=== PATIENT | male | born 1985 | race Caucasian/White ===

== ENCOUNTER 2018-09-18 22:04 | Inpatient (IN) ==
[2018-09-18] MEDS ORDERED: 0.9 % SODIUM CHLORIDE 1,000 ML IV ONE ×2 (22:14→23:06)
[2018-09-18] MEDS ORDERED: ONDANSETRON 4 MG/2 ML VIAL IV ONE (22:20)
[2018-09-18 22:36] LABS: Basophils # (Auto) 0 K/mcL (0.0-0.3); Basophils % (Auto) 0.4 % (0.0-2.0); Eosinophils # (Auto) 0.2 K/mcL (0.0-0.7); Granulocytes % (Auto) 66.1 % (38.0-78.0); Lymphocytes # (Auto) 2.3 K/mcL (1.5-4.8); Lymphocytes % (Auto) 23.6 % (15.5-49.0); Mean Cell Volume 74.3 fL (80.0-100.0); Mean Corpuscular HGB Conc 33.3 g/dL (31.0-36.0); Mean Corpuscular Hemoglobin 24.8 pg (26.0-34.0); Monocytes # (Auto) 0.8 K/mcL (0.1-0.9); Monocytes % (Auto) 7.9 % (1.0-12.0); Platelet Count 177 K/mcL (140-440); RBC 4.18 M/mcL (4.50-5.90); Red Cell Distribution Width 14.6 % (11.5-14.5)
[2018-09-18 23:05] LABS: ALT/SGPT 12 U/l (0-40); Albumin 3.4 gm/dL (3.2-5.2); Alkaline Phosphatase 66 U/L (39-117); Blood Urea Nitrogen 20 mg/dl (6-20)
[2018-09-19] MEDS ORDERED: 0.9 % SODIUM CHLORIDE 1,000 ML IV ONE (00:25)
[2018-09-19] MEDS ORDERED: INSULIN REGULAR, HUMAN 1 UNIT/0.01 ML UNIT IV ONE (01:38)
--- NOTE | 2018-09-19 01:56 | Emergency Department Note ---
General Adult HPI - General Chief complaint: Dizziness Stated complaint: Coughing up Blood and Dizziness Time Seen by Provider: 09/19/18 00:05 Source: patient, family Mode of arrival: wheelchair Limitations: no limitations - History of Present Illness HPI Narrative: Marquise is a very tall and very large 32-year-old male comes to the emergency room after having an episode of vomiting with some blood in it today. He is felt short of breath. This seems to have worsened today. He has been also particularly dizzy this afternoon particularly with standing up. He has been sick for a couple of weeks that has included some cough, cloudy heavy mucus mostly he thinks coughed up from postnasal drainage. He has not vomited except as above. He has not had fevers or chills or sweats. REVIEW OF SYSTEMS: By careful eating he has over 3-4 years lost weight from over 500 pounds down to 360. Denies chest pains. Has slight or mild wheezing. No nausea chronically but some this evening. No diarrhea or constipation. No hematochezia. He had some melanotic stool a few months ago. He denies acid reflux or heartburn. Denies dysuria Some low back pain that he attributes to adjustments because of knee pain probably. Has had a few headaches. He has had constant weakness but also muscle weakness related to his back and knee issues and he is getting into physical therapy regarding that. Today is felt imbalance. Some anxiousness but not chronically or history of. Some depression symptoms but not chronically or under treatment. He has a fair amount of stressors. - Related Data Allergies Allergy/AdvReac Type Severity Reaction Status Date / Time No Known Drug Allergies Allergy Verified 09/18/18 22:10 Past Medical History - Past Medical History Medical history: Reports: asthma, obesity (MORBID), other (DENIES: PUD.). Denies: DM, hypertension, hypothyroidism, renal disease Psychiatric history: Denies: anxiety, depression Family history: Reports: diabetes (mother) - Social History smoking status: Never smoker Alcohol use: Reports: Rarely (1-2/month) Drug use: Reports: none. Denies: marijuana Physical Exam Limitations: no limitations General appearance: alert, in no apparent distress Head: atraumatic, normocephalic Eye: Present: EOMI ENT: normal exam, mucous membranes dry (mildly.) Neck: Present: trachea midline. Absent: lymphadenopathy, thyromegaly Chest: Present: symmetric chest wall rise Respiratory: Present: normal lung sounds bilaterally. Absent: respiratory distress, wheezes, stridor, accessory muscle use, prolonged expiratory phase Cardiovascular: Present: regular rate, normal rhythm. Absent: systolic murmur, diastolic murmur Abdominal: Present: soft, other (markedly large; also large folds panniculi.). Absent: distention, tenderness, guarding, rebound, rigidity, organomegaly, mass Extremities: Absent: pedal edema, pretibial edema, calf tenderness Back: Absent: CVA tenderness (R), CVA tenderness (L), spinous process tenderness Neurological: Present: alert, oriented X3 Psychiatric: Present: flat affect, serious Skin: Present: warm, dry Course Course Narrative: 10:52 PM - significant dizziness. We will do orthostatic blood pressures and labs. IV fluids. Labs came back with a blood sugar of over 300. He has a moderate anemia with microcytosis. We will repeat this in an hour. Beta hydroxybutyrate was mildly elevated at 0.35. Will give a second liter of fluid. Approximately 1 AM - 2nd POC hematocrit remained stable at 27%. patient remained orthostatic with blood pressures dropping and pulse going up to 150. Additional liter of fluid, third, ordered. 1:45 AM - patient was able to ambulate from wheelchair to his bed and in the bathroom without major difficulties and stated he felt some better. Blood sugar went back up over 300 and so 5 units of regular given IV. 1:55 AM - On repeat testing of postural changes his pulse again went to nearly 150 and became dizzy with standing. Call out to hospitalist to consider admission because of his postural hypotension with severe tachycardia in the circumstance of new diagnosis of diabetes and an underlying microcytic anemia. 2:25 AM - patient had a large melanotic stool that was grossly heme positive as well as a small amount of emesis with mucus and some blood. He gave a history of being on naproxen [address] [facility] clinic for his knee pain and back pain and has been on this for weeks. Will do a Protonix push and drip and transfer patient to [facility] because of lack of ICU bed availability. Patient needs careful monitoring, probable low insulin drip for DKA, and probable packed RBCs. POC Chem-8 and hematocrit ordered as well. 2:35 AM - possibility of an ICU bed here became available. Need to speak with GI specialist regarding guidance and timing for upper scope. 2:45 AM - repeat hematocrit (POC) was 29%, an increase of 2%, in spite of patient's significant orthostasis! Still will be typing and crossing 2 units of blood. I also spoke with Ozzie Graf, who will plan on doing patient's upper scope around 5:30 AM. Patient to be transferred to ICU. Hospitalist, Dr. Barclay, aware and in agreement. CBC ordered to try to confirm the POC readings; PT/INR and PTT also ordered. Vital Signs Temperature 97.5 F 09/18/18 22:05 Pulse Rate 111 H 09/18/18 22:05 Respiratory Rate 15 09/18/18 22:05 Blood Pressure 133/71 09/18/18 22:05 Pulse Oximetry (%) 96 09/18/18 22:05 Temperature 97.5 F 09/18/18 22:05 Pulse Rate 107 H 09/19/18 02:08 Respiratory Rate 17 09/19/18 02:08 Blood Pressure 110/73 09/19/18 02:03 Pulse Oximetry (%) 98 09/19/18 02:08 Medical Decision Making - Lab Data Result diagrams: 09/18/18 22:15 09/18/18 22:15 Lab Results 09/18/18 09/18/18 09/18/18 Range/Units 22:15 22:15 22:15 WBC 9.6 (4.5-11.0) K/mcL RBC 4.18 L (4.50-5.90) M/mcL Hgb 10.4 L (13.5-16.5) g/dL Hct 31.1 L (41.0-55.0) % POC Hct (41.0-55.0) % MCV 74.3 L (80.0-100.0) fL MCH 24.8 L (26.0-34.0) pg MCHC 33.3 (31.0-36.0) g/dL RDW 14.6 H (11.5-14.5) % Plt Count 177 (140-440) K/mcL MPV 10.0 (7.4-10.4) fL Gran % 66.1 (38.0-78.0) % Lymph % (Auto) 23.6 (15.5-49.0) % Starke % (Auto) 7.9 (1.0-12.0) % Eos % (Auto) 2.0 (0.0-7.0) % Baso % (Auto) 0.4 (0.0-2.0) % Gran # 6.3 (1.8-8.0) K/mcL Lymph # (Auto) 2.3 (1.5-4.8) K/mcL Starke # (Auto) 0.8 (0.1-0.9) K/mcL Eos # (Auto) 0.2 (0.0-0.7) K/mcL Baso # (Auto) 0 (0.0-0.3) K/mcL POC Sodium (133-145) mmol/L Sodium 137 (133-145) mmol/L POC Potassium (3.3-5.1) mmol/L Potassium 3.9 (3.3-5.1) mmol/L POC Chloride (96-108) mmol/L Chloride 102 (96-108) mmol/L Carbon Dioxide 21 L (22-30) mmol/L POC Total CO2 (22-30) mmol/L Anion Gap 14.0 (8-16) POC BUN (6-20) mg/dl BUN 20 (6-20) mg/dl Creatinine 0.6 L (0.7-1.2) mg/dl POC Creatinine (0.7-1.2) mg/dl GFR Calculation 132 Glucose 339 H (70-105) mg/dL POC Glucose (70-105) mg/dL Calcium 8.6 (8.6-10.4) mg/dl POC WB Ioniz Calcium (1.16-1.32) mmol/L Total Bilirubin 0.3 (0.0-1.0) mg/dL AST 12 (0-37) U/l ALT 12 (0-40) U/l Alkaline Phosphatase 66 (39-117) U/L Total Protein 6.7 (5.9-8.4) gm/dL Albumin 3.4 (3.2-5.2) gm/dL Globulin 3.3 (2.2-3.7) gm/dL Albumin/Globulin Ratio 1.0 (1.0-2.3) Beta-Hydroxybutyrate 0.35 H (< 0.27) mmol/L 09/18/18 09/18/18 Range/Units 22:30 23:35 WBC (4.5-11.0) K/mcL RBC (4.50-5.90) M/mcL Hgb (13.5-16.5) g/dL Hct (41.0-55.0) % POC Hct 27.0 L 27.0 L (41.0-55.0) % MCV (80.0-100.0) fL MCH (26.0-34.0) pg MCHC (31.0-36.0) g/dL RDW (11.5-14.5) % Plt Count (140-440) K/mcL MPV (7.4-10.4) fL Gran % (38.0-78.0) % Lymph % (Auto) (15.5-49.0) % Starke % (Auto) (1.0-12.0) % Eos % (Auto) (0.0-7.0) % Baso % (Auto) (0.0-2.0) % Gran # (1.8-8.0) K/mcL Lymph # (Auto) (1.5-4.8) K/mcL Starke # (Auto) (0.1-0.9) K/mcL Eos # (Auto) (0.0-0.7) K/mcL Baso # (Auto) (0.0-0.3) K/mcL POC Sodium 140 139 (133-145) mmol/L Sodium (133-145) mmol/L POC Potassium 3.7 4.6 (3.3-5.1) mmol/L Potassium (3.3-5.1) mmol/L POC Chloride 104 104 (96-108) mmol/L Chloride (96-108) mmol/L Carbon Dioxide (22-30) mmol/L POC Total CO2 21 L 23 (22-30) mmol/L Anion Gap (8-16) POC BUN 19 25 H (6-20) mg/dl BUN (6-20) mg/dl Creatinine (0.7-1.2) mg/dl POC Creatinine 0.3 L 0.4 L (0.7-1.2) mg/dl GFR Calculation Glucose (70-105) mg/dL POC Glucose 330 H 297 H (70-105) mg/dL Calcium (8.6-10.4) mg/dl POC WB Ioniz Calcium 1.09 L 1.05 L (1.16-1.32) mmol/L Total Bilirubin (0.0-1.0) mg/dL AST (0-37) U/l ALT (0-40) U/l Alkaline Phosphatase (39-117) U/L Total Protein (5.9-8.4) gm/dL Albumin (3.2-5.2) gm/dL Globulin (2.2-3.7) gm/dL Albumin/Globulin Ratio (1.0-2.3) Beta-Hydroxybutyrate (< 0.27) mmol/L Disposition Pt seen by REEL SLITTER/PA only: No Clinical Impression: Orthostasis, Sinus tachycardia, Morbid obesity due to excess calories, Microcytic hypochromic anemia, Hematemesis with nausea, URI, acute, Upper GI bleed, Melanotic stools Diabetes mellitus type 1 with ketoacidosis Qualifiers: Diabetes mellitus complication detail: without coma Qualified Code(s): E10.10 - Type 1 diabetes mellitus with ketoacidosis without coma Disposition: Xfer As Inpt ([facility]) Condition: Fair Referrals: No,PCP [Primary Care Provider] -
[2018-09-19] MEDS ORDERED: ONDANSETRON 4 MG/2 ML VIAL IV ONE (02:22)
[2018-09-19] MEDS ORDERED: ONDANSETRON 4 MG/2 ML VIAL ONE (02:30)
[2018-09-19] MEDS ORDERED: PANTOPRAZOLE 40 MG VIAL IV ONE (02:33)
[2018-09-19] MEDS ORDERED: LACTATED RINGERS 1,000 ML IV ONE (02:43)
[2018-09-19] MEDS ORDERED: PANTOPRAZOLE 80 MG in 0.9 % SODIUM CHLORIDE 100 ML IV SCH (02:45)
[2018-09-19] MEDS ORDERED: 0.9 % SODIUM CHLORIDE 250 ML IV SCH (03:00)
[2018-09-19] MEDS: 0.45 % SODIUM CHLORIDE 1,000 ML IV SCH ×2 (03:15→07:24)
[2018-09-19] MEDS: 0.9 % SODIUM CHLORIDE 1,000 ML IV SCH ×2 (03:15→05:52)
[2018-09-19] MEDS ORDERED: ACETAMINOPHEN 325 MG TABLET PO PRN (03:58)
[2018-09-19] MEDS ORDERED: IPRATROPIUM/ALBUTEROL 3 ML AMPUL.NEB NEB PRN (03:58)
[2018-09-19] MEDS ORDERED: HYDROcodone/APAP 5/325MG TABLET PO PRN (03:58)
[2018-09-19 04:03] LABS: Basophils # (Auto) 0.1 K/mcL (0.0-0.3); Basophils % (Auto) 0.6 % (0.0-2.0); Eosinophils # (Auto) 0.1 K/mcL (0.0-0.7); Eosinophils % (Auto) 0.9 % (0.0-7.0); Lymphocytes # (Auto) 2.8 K/mcL (1.5-4.8); Lymphocytes % (Auto) 23.2 % (15.5-49.0); Mean Cell Volume 76.2 fL (80.0-100.0); Mean Corpuscular HGB Conc 32.2 g/dL (31.0-36.0); Mean Corpuscular Hemoglobin 24.6 pg (26.0-34.0); Monocytes # (Auto) 0.9 K/mcL (0.1-0.9); Monocytes % (Auto) 7.3 % (1.0-12.0); Platelet Count 210 K/mcL (140-440); RBC 3.83 M/mcL (4.50-5.90); Red Cell Distribution Width 15.3 % (11.5-14.5)
--- NOTE | 2018-09-19 04:16 | Internal Med History&Physical ---
Medical - H&P: [facility] Patient information: Note initiated : 09/19/18 at 4:11 am Service Date, if different from initiated Date: [] Patient: Marquise Garibay a 32 y/o M admitted on for Coughing up Blood and Dizziness. Chief Complaint: [] History of present illness: Mr. Garibay is a 32 year old M resents to the ED with nausea vomiting. He states that this all started tonight started to feel more tired today and have an episode of nausea vomiting with bright red blood in it, he became very lightheaded today short of breath with exertion. Is been very tired today. Because of the bloody when the ER. In the ED he was found to have early DKA and a GI bleed, appeared to be upper. He also had a dark melanotic bowel movement in the ED. Patient has had polyuria polydipsia but no previous diagnosis of diabetes. He is lost probably close to 200 pounds over the last few years, from dietary changes. He also has chronic knee and back pain and has been taking naproxen 1- 2 tablets every day for the past several months prior to that he was using ibuprofen. Dr. Henry was contacted from the ED who will perform endoscopy shortly. Patient was also put on a insulin drip and a Protonix drip. Review of Systems: Positives as above. denies headache/fever/chills/abdominal pain. Remaining 10 point review of systems reviewed and negative Medical - H&P: PMH Medical history: Past medical history: Asthma Obesity Chronic knee and back pain Surgical history: None Family history: Mother had diabetes father was relatively healthy from what the patient knows Social history: Patient denies tobacco drinks alcohol rarely lives at home with family. Medical - H&P: Meds Home Medications Medication Instructions Recorded Confirmed Type Loratadine [Claritin] 10 mg PO ONCE 09/19/18 09/19/18 History Naproxen 500 mg PO Q6 PRN 09/19/18 09/19/18 History Allergies Allergy/AdvReac Type Severity Reaction Status Date / Time No Known Drug Allergies Allergy Verified 09/18/18 22:10 Medical - H&P: Exam - Constitutional Vitals: Temp Pulse Resp BP Pulse Ox 97.5 F 116 H 12 111/66 98 09/18/18 22:05 09/19/18 02:16 09/19/18 03:18 09/19/18 03:17 09/19/18 02:16 Exam: General: Alert, Awake, No acute Distress, obese Eyes/N/T: EOMI, pupils equal round reactive light, dry mucous membranes Head/Neck: neck supple, normocephalic atraumatic CV: Tachycardia but regular, No murmurs, normal s1/s2 Pulm: Clear b/l, no wheezing/rhonchi/rales Abd: soft, nontender, +BS x4 Ext: no clubbing/cyanosis/edema Neuro: Alert, no focal deficits, moves all extremities Skin: warm/dry, pale Medical - H&P: Reslt - Labs CBC & Chem 7: 09/19/18 03:00 09/18/18 22:15 Labs: Short CBC 09/18/18 09/19/18 Range/Units 22:15 03:00 WBC 9.6 12.2 H (4.5-11.0) K/mcL Hgb 10.4 L 9.4 L (13.5-16.5) g/dL Hct 31.1 L 29.2 L (41.0-55.0) % Plt Count 177 210 (140-440) K/mcL BMP 09/18/18 22:15 Sodium 137 Potassium 3.9 Chloride 102 Carbon Dioxide 21 L BUN 20 Creatinine 0.6 L Glucose 339 H Calcium 8.6 Liver Function 09/18/18 Range/Units 22:15 Total Bilirubin 0.3 (0.0-1.0) mg/dL AST 12 (0-37) U/l ALT 12 (0-40) U/l Alkaline Phosphatase 66 (39-117) U/L Albumin 3.4 (3.2-5.2) gm/dL - Impressions EKG with normal sinus rhythm Medical - H&P: A/P - Narrative A/P Narrative: A: *Early DKA (New DM diagnosis): *GI bleed, Upper from PUD: 2/2 NSAIDS *Anemia, acute blood loss: *Asthma: *Obesity: * P: -Insulin gtt, f/u chemistry -metformin upon discharge -check A1c -IVF's -DM education -protonix gtt -f/u H&H -Femi for endoscopy - -ppx: SCD
[2018-09-19] MEDS ORDERED: POTASSIUM CHLORIDE 20 MEQ/10 ML VIAL IV ONE (04:49)
[2018-09-19 05:11] LABS: Appearance,Urine CLEAR; Bacteria,Urine 0 /hpf (0); Bilirubin,Urine NEG (NEG); Color,Urine YELLOW; Glucose,Urine (UA) >=500 mg/dL (NEG); Leukocyte Esterase,Urine NEG /uL (NEG); Mucus,Urine FEW /hpf (0); Protein,Urine NEG (NEG); Specific Gravity,Urine 1.041 (1.000-1.035); Urine Blood NEG mg/dL (<0.03); Urine RBC 0 /hpf (0-1); Urine Squamous Epithelial Cell < 1 /hpf (0-4); Urine WBC 1 /hpf (0-4); Urobilinogen,Urine NEG (NEG)
[2018-09-19] MEDS ORDERED: MIDAZOLAM 2 MG/2 ML VIAL IV SCH (05:15)
[2018-09-19] MEDS ORDERED: PROPOFOL 200 MG/20 ML VIAL IV SCH (05:15)
[2018-09-19] MEDS ORDERED: MIDAZOLAM 2 MG/2 ML VIAL ONE (05:25)
[2018-09-19] MEDS ORDERED: PROPOFOL 0 ML IV ONE (05:25)
[2018-09-19] MEDS ORDERED: PROPOFOL 40 ML IV ONE (05:25)
[2018-09-19 05:35] LABS: Hemoglobin A1C 10.7 % HGB (4.0-6.0)
[2018-09-19] MEDS: 0.9 % SODIUM CHLORIDE 10 ML SYRINGE IV SCH ×4 (05:52→20:23)
[2018-09-19] MEDS ORDERED: 0.9 % SODIUM CHLORIDE 500 ML IV SCH (06:10)
[2018-09-19] MEDS: POTASSIUM CHLORIDE 20 MEQ in 0.45 % SODIUM CHLORIDE 1,000 ML IV SCH ×2 (06:30→13:26)
[2018-09-19] MEDS ORDERED: OCTREOTIDE ACETATE 100 MCG/ML VIAL IV ONE (06:58)
[2018-09-19] MEDS ORDERED: OCTREOTIDE ACETATE 500 MCG in 0.9 % SODIUM CHLORIDE 495 ML IV SCH (07:00)
[2018-09-19] MEDS ORDERED: HYDROmorphone 2 MG/ML VIAL IV PRN (07:14)
--- NOTE | 2018-09-19 07:25 | Operative Note ---
DATE OF OPERATION: 09/19/2018 PROCEDURE: Esophagogastroduodenoscopy with varicele band ligations. LOCKSTITCH POCKET SETTER AND PROPOSITION PLAYER: Gilberto Kahn MD ANESTHETIC USED: Propofol 400 mg IV, Versed 2 mg IV. PREOPERATIVE DIAGNOSIS: This 32-year-old white male presented to the emergency room late last night with new onset of grossly melenic stool and lightheadedness. He also had some hematemesis of dark red blood by his report. He has no abdominal pain. He has been having problems with musculoskeletal pain for several months now involving his knee and also an ankle problem. He previously had been on ibuprofen for many months and in the last 2 months he estimates he has been taking naproxen twice a day. He was seen at the [facility], but cannot recall which provider he saw. He does not have any routine medical care. On presentation to the emergency room last night he was found to be markedly orthostatic. No abdominal pain. Hemoglobin was initially 10.4 and then on repeat was down to 9.4. He is also found to have diabetes. He has a family history, but was unaware of any diabetes until this time. He has some mild DKA. His hemoglobin A1C on admission is 10.7. He denies smoking. He drinks one shot of alcohol, perhaps once a month or maybe once every 2 months. 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 Banding performed as described below. CONSENT: Prior to the procedure, the patient provided his own informed consent. The patient was evaluated and considered medically fit for endoscopy. DESCRIPTION OF PROCEDURE: With the patient in left lateral decubitus position, a gastroscope was advanced via the mouth to the esophagus under direct vision. The procedure was performed with the patient in Intensive Care Unit. As soon as I advanced the scope into the esophagus, it became evident that he has large esophageal varices. There is no active blood or identified bleeding site from the esophageal varices, however. I advanced the scope into the stomach and there was initially some wispy blood and mucus scattered around the stomach but no active bleed. I then advanced the scope to the antrum and found no ulcer. The duodenal bulb was seen well and there was no ulcer there or in the second portion of the duodenum. I then brought the scope back to the stomach and took a retroflexed view. From the time I had passed the scope down the esophagus until the time I was retroflexing in the stomach, there was apparently bleeding induced in the proximal stomach. There was bright red blood identified in the proximal stomach and I looked around and had some difficulty actually clearing out the blood to get good visualization, but eventually I was able to see at the gastric cardia just about 1 cm distal to the GE junction, there was an actively bleeding gastric varix. I could see it bleeding in retroflex view, but could not easily access it. I straightened the scope out and brought to the distal esophagus and with the scope positioned at the GE junction I could see the blood dripping from the varix at the proximal stomach. I removed the scope and placed a band ligating unit on the end of the scope. The scope was reintroduced and I went directly to the bleeding site at the proximal stomach. I double banded the bleeding varix. I then placed 3 bands on the distal esophageal varices. I attempted to place a fourth band on the esophageal varices but the last band fell off. Fortunately it did not induce any bleeding. COMPLICATIONS: None immediate. RECOMMENDATIONS AND FOLLOWUP: 1. Octreotide bolus 50 mcg and drip 50 mcg per hour. 2. I have advised at least 1 unit of packed red blood cell infusion now given the apparent large amount of blood loss along with the orthostatic status. 3. I have discussed with the hospitalist, Dr. Barclay. I am going to recommend serologic workup for cirrhosis and will recommend and discuss the case with Dr. Gilberto Parkinson of Interventional Radiology at [facility]. I suspect he has gastric varices which bled and with as much blood as he had quickly accumulated in his stomach I was not able to see to examine the gastric varices as well as I would like. The patient may benefit from TIPS, but I will discuss with Dr. Parkinson. JCM:rolando Job ID: [id number] Doc ID: [id number] Gilberto Kahn MD TATIANA - Attn: Jennifer Parkinson MD
[2018-09-19] MEDS: ONDANSETRON ODT 4 MG TABLET SL PRN ×2 (07:40→19:03)
[2018-09-19 08:07] LABS: ALT/SGPT 10 U/l (0-40); Albumin/Globulin Ratio 1.1 (1.0-2.3); Alkaline Phosphatase 55 U/L (39-117); Bilirubin,Direct < 0.2 mg/dL (0.0-0.3); Blood Urea Nitrogen 23 mg/dl (6-20); Gamma Glutamyl Transpeptidase 15 U/L (8-61); Uric Acid 2.7 mg/dL (2.5-8.0)
[2018-09-19] MEDS ORDERED: DEXTROSE 31 GM ORAL.SUSP PO PRN (09:54)
[2018-09-19] MEDS ORDERED: DEXTROSE 50% 50 ML VIAL IV PRN (09:54)
[2018-09-19] MEDS: INSULIN LISPRO 1 UNIT/0.01 ML UNIT SQ SCH ×5 (10:13→23:44)
[2018-09-19] MEDS ORDERED: IOPAMIDOL 100 ML BOTTLE IV ONE (12:45)
--- NOTE | 2018-09-19 14:28 | Cat Scan Report ---
CLINICAL INFORMATION: Abdominal pain. Hematemesis Possible cirrhosis COMPARISON: None. TECHNIQUE: 0.625 mm precontrast images were obtained from the mid heart through the iliac crest. Water was utilized as enteric contrast. 90 cc of Isovue-300 were injected intravenously, 25 seconds later, 0.625 mm helical slices were obtained from the mid heart through the subtrochanteric regions. 65 seconds after injection 0.625 helical slices were obtained from the mid heart through the subtrochanteric region of the femurs. Following reconstruction, 2.5 mm sagittal, coronal and axial reformatted images were processed and reviewed at bone, lung and soft tissue windows the arterial portal venous phasesThe exam was performed using radiation dose optimization techniques including, but not limited to, automated exposure control, adjustment of the mA and/or kV according to patient size and use of iterative reconstruction technique. FINDINGS: Lung bases show small right pleural effusion. There are no infiltrates. The visualized heart is normal in size and configuration. Abdominal images show mild cirrhotic changes featuring inhomogeneous hepatic attenuation, mild cortical irregularity and slight decrease in hepatic size. There is no CT evidence for hepatoma or other focal hepatic lesion. Small amount of high density material layering dependently within the gallbladder may indicate sludge or tiny stones. Gallbladder and intrahepatic/extrahepatic bile ducts are, otherwise, normal. CBD is 5 mm. The portal vein is mildly enlarged with a diameter of 19 mm. There is also congestion in all the portal vein tributaries: Splenic vein, SMV and IMV. Mild splenic and gastric varices noted. There are no esophageal varices however. A small amount of ascites is seen in the perihepatic, perisplenic and intrapelvic regions. The spleen is markedly enlarged - 20 cm in vertical dimension The pancreas, both adrenal glands, kidneys, aorta including aortic branches, are normal in size configuration and attenuation without focal lesion. The stomach, small bowel/large bowel and appendix region are normal. Images through the pelvis show prostate, vesicles and urinary bladder to be normal. Bone windows show no focal osseous abnormality. At L5-S1, moderate broad disc complex and facet arthropathy result in severe right and moderate left IV foraminal narrowing impinging exiting L5 nerve roots. IMPRESSION: 1. Mild cirrhotic changes with portal hypertension featuring enlargement of the portal vein and tributaries and perisplenic and gastric varices with a small amount of ascites. The spleen is markedly enlarged 2. Small right pleural effusion Interpreted and Authenticated by: Gilberto Solorio 09/19/18
[2018-09-19] MEDS: OCTREOTIDE ACETATE 500 MCG in 0.9 % SODIUM CHLORIDE 499.5 ML IV SCH (17:58)
[2018-09-20] MEDS: INSULIN LISPRO 1 UNIT/0.01 ML UNIT SQ SCH ×5 (04:07→19:31)
[2018-09-20] MEDS: OCTREOTIDE ACETATE 500 MCG in 0.9 % SODIUM CHLORIDE 499.5 ML IV SCH ×2 (04:30→14:30)
[2018-09-20] MEDS: ONDANSETRON ODT 4 MG TABLET SL PRN ×2 (05:20→09:53)
[2018-09-20] MEDS: 0.9 % SODIUM CHLORIDE 10 ML SYRINGE IV SCH ×4 (05:21→22:13)
[2018-09-20 06:37] LABS: Basophils # (Auto) 0 K/mcL (0.0-0.3); Basophils % (Auto) 0.6 % (0.0-2.0); Eosinophils # (Auto) 0.1 K/mcL (0.0-0.7); Eosinophils % (Auto) 2.9 % (0.0-7.0); Granulocytes % (Auto) 59.8 % (38.0-78.0); Lymphocytes # (Auto) 1.3 K/mcL (1.5-4.8); Lymphocytes % (Auto) 29.1 % (15.5-49.0); Mean Corpuscular HGB Conc 32.4 g/dL (31.0-36.0); Mean Corpuscular Hemoglobin 25.3 pg (26.0-34.0); Monocytes # (Auto) 0.3 K/mcL (0.1-0.9); Monocytes % (Auto) 7.6 % (1.0-12.0); Platelet Count 98 K/mcL (140-440); RBC 3.33 M/mcL (4.50-5.90); Red Cell Distribution Width 16.6 % (11.5-14.5)
[2018-09-20 07:09] LABS: ALT/SGPT 13 U/l (0-40); Albumin 3.1 gm/dL (3.2-5.2); Albumin/Globulin Ratio 1.1 (1.0-2.3); Alkaline Phosphatase 55 U/L (39-117); Bilirubin,Direct < 0.2 mg/dL (0.0-0.3); Blood Urea Nitrogen 13 mg/dl (6-20); Gamma Glutamyl Transpeptidase 13 U/L (8-61)
[2018-09-20] MEDS ORDERED: PANTOPRAZOLE 40 MG VIAL IV SCH (07:30)
[2018-09-20] MEDS ORDERED: 0.9 % SODIUM CHLORIDE 250 ML IV SCH ×2 (08:00→14:49)
[2018-09-20] MEDS ORDERED: INSULIN GLARGINE, HUMAN 1 UNIT/0.01 ML SQ ONE (11:13)
--- NOTE | 2018-09-20 12:45 | Internal Med Progress Note ---
Medical - PN: Subj Patient information: Note initiated : 09/20/18 at 12:43 pm Service Date, if different from initiated Date: [] Patient: Marquise Garibay 32 y/o M admitted on 09/19/18 for Coughing up Blood and Dizziness. Chief Complaint: f/u GI Bleed Interval history: 09/19 Admitted after presenting with upper gastrointestinal hemorrhage. EGD revealed gastric varices, one of which was banded due to active bleeding. Also with mild ketosis and elevated glucose, new onset diabetes. 09/20 Stable this morning. Hemoglobin is drifted from 9.6-8.6 last 24 hours. Continuing to pass some dark/bloody stools, though tapering off and is not brisk. No nausea or vomiting. No hematemesis. Tolerating clear liquid diet. Discussed with Dr. Henry. We'll continue with octreotide for 2448 hours further. Will need beta tyler at the time of discharge. Discussed with Dr. Parkinson, he will see the patient electively for possible TIPS or other procedure for treatment of gastric varices. Serologies and etiology of cirrhosis pending. - Constitutional Vitals: Vital Signs Temp Pulse Resp BP Pulse Ox 98.8 F 80 17 127/74 95 09/20/18 08:01 09/20/18 10:01 09/20/18 10:01 09/20/18 10:01 09/20/18 10:01 Period Temp Pulse Resp BP Sys/Puga Pulse Ox Last 24 Hr 98.3 F-99.3 F 66-88 8-20 109-133/59-79 93-100 Intake and Output 09/19/18 09/20/18 09/20/18 21:59 05:59 13:59 Intake Total 1510 / 1510 500 / 500 240 / 240 Output Total 375 / 375 600 / 600 275 / 275 Balance 1135 / 1135 -100 / -100 -35 / -35 Weight 366 lb 6.4 oz Intake & Output: Intake & Output 09/19/18 09/20/18 09/20/18 21:59 05:59 13:59 Intake Total 1510 / 1510 500 / 500 240 / 240 Output Total 375 / 375 600 / 600 275 / 275 Balance 1135 / 1135 -100 / -100 -35 / -35 Weight 366 lb 6.4 oz Intake: IV 1510 / 1510 500 / 500 Sandostatin 500 Mcg In Sodium 500 / 500 Chloride 0.9% 499.5 ml @ 50 MCG /HR 50 mls/hr IV .Q10H [facility] Rx#: [id number] Oral 0 / 0 240 / 240 Output: Void Amount 375 / 375 600 / 600 275 / 275 Other: Meal Breakfast Percent of Meal Consumed 100% Urine Appearance Clear Clear Urine Color Bright Yellow Bright Yellow Bright Yellow Urine Odor Normal Normal Stool Size Copious Small Stool Color Dark Red Blood Dark Red Blood Stool Consistency Liquid Soft Loose Formed # Voids 1 # Bowel Movements 1 Exam: General: In bed in no acute distress Chest: Clear, unlabored Cardiac vascular: Regular, trace edema Abdomen: Obese, soft, nontender Neuro: Alert, oriented to person, place and situation, moves all extremities, ambulating without symptoms. Medical - PN: Obj Da - Labs CBC & Chem 7: 09/20/18 04:07 09/20/18 04:07 Labs: Abnormal Lab Results 09/20/18 09/20/18 09/20/18 04:07 04:07 04:07 WBC RBC 3.33 L Hgb 8.4 L Hct 25.9 L POC Hct MCV 78.0 L MCH 25.3 L RDW 16.6 H Plt Count 98 L MPV Gran # Lymph # (Auto) 1.3 L PT INR Carbon Dioxide POC Total CO2 POC BUN BUN Creatinine 0.5 L POC Creatinine Glucose 229 H POC Glucose Hemoglobin A1c Osmolality Calcium 8.2 L POC WB Ioniz Calcium Phosphorus Iron 32 L Ferritin 16.0 L Total Protein Albumin 3.1 L Beta-Hydroxybutyrate Ur Specific [place] Urine Glucose (UA) Urine Ketones 09/20/18 09/19/18 09/19/18 00:10 20:01 16:21 WBC RBC Hgb 8.6 L 8.8 L 9.0 L Hct 26.2 L 26.9 L 27.4 L POC Hct MCV MCH RDW Plt Count MPV Gran # Lymph # (Auto) PT INR Carbon Dioxide POC Total CO2 POC BUN BUN Creatinine POC Creatinine Glucose POC Glucose Hemoglobin A1c Osmolality Calcium POC WB Ioniz Calcium Phosphorus Iron Ferritin Total Protein Albumin Beta-Hydroxybutyrate Ur Specific [place] Urine Glucose (UA) Urine Ketones 09/19/18 09/19/18 09/19/18 11:50 07:00 03:00 WBC RBC Hgb 9.3 L Hct 28.2 L POC Hct MCV MCH RDW Plt Count MPV Gran # Lymph # (Auto) PT INR Carbon Dioxide 21 L POC Total CO2 POC BUN BUN 23 H Creatinine 0.5 L POC Creatinine Glucose 294 H POC Glucose Hemoglobin A1c Osmolality Calcium 8.0 L POC WB Ioniz Calcium Phosphorus Iron Ferritin Total Protein 5.7 L Albumin 3.0 L Beta-Hydroxybutyrate Ur Specific [place] 1.041 H Urine Glucose (UA) >=500 A Urine Ketones 20 A 09/19/18 09/19/18 09/19/18 03:00 03:00 03:00 WBC RBC Hgb Hct POC Hct MCV MCH RDW Plt Count MPV Gran # Lymph # (Auto) PT 14.8 H INR 1.2 H Carbon Dioxide POC Total CO2 POC BUN BUN Creatinine POC Creatinine Glucose POC Glucose Hemoglobin A1c 10.7 H Osmolality Calcium POC WB Ioniz Calcium Phosphorus 2.5 L Iron Ferritin Total Protein Albumin Beta-Hydroxybutyrate Ur Specific [place] Urine Glucose (UA) Urine Ketones 09/19/18 09/19/18 09/19/18 03:00 03:00 02:30 WBC 12.2 H RBC 3.83 L Hgb 9.4 L Hct 29.2 L POC Hct 29.0 L MCV 76.2 L MCH 24.6 L RDW 15.3 H Plt Count MPV 11.3 H Gran # 8.3 H Lymph # (Auto) PT INR Carbon Dioxide POC Total CO2 21 L POC BUN 22 H BUN Creatinine POC Creatinine 0.4 L Glucose POC Glucose 286 H Hemoglobin A1c Osmolality Calcium POC WB Ioniz Calcium 1.13 L Phosphorus Iron Ferritin Total Protein Albumin Beta-Hydroxybutyrate 0.37 H Ur Specific [place] Urine Glucose (UA) Urine Ketones 09/18/18 09/18/18 09/18/18 23:35 22:30 22:15 WBC RBC Hgb Hct POC Hct 27.0 L 27.0 L MCV MCH RDW Plt Count MPV Gran # Lymph # (Auto) PT INR Carbon Dioxide POC Total CO2 21 L POC BUN 25 H BUN Creatinine POC Creatinine 0.4 L 0.3 L Glucose POC Glucose 297 H 330 H Hemoglobin A1c Osmolality 306 H Calcium POC WB Ioniz Calcium 1.05 L 1.09 L Phosphorus Iron Ferritin Total Protein Albumin Beta-Hydroxybutyrate Ur Specific [place] Urine Glucose (UA) Urine Ketones 09/18/18 09/18/18 09/18/18 22:15 22:15 22:15 WBC RBC 4.18 L Hgb 10.4 L Hct 31.1 L POC Hct MCV 74.3 L MCH 24.8 L RDW 14.6 H Plt Count MPV Gran # Lymph # (Auto) PT INR Carbon Dioxide 21 L POC Total CO2 POC BUN BUN Creatinine 0.6 L POC Creatinine Glucose 339 H POC Glucose Hemoglobin A1c Osmolality Calcium POC WB Ioniz Calcium Phosphorus Iron Ferritin Total Protein Albumin Beta-Hydroxybutyrate 0.35 H Ur Specific [place] Urine Glucose (UA) Urine Ketones Meds: Medications Acetaminophen (Tylenol) 650 mg PO Q6HP PRN PRN Reason: PAIN/FEVER > 101 Hydrocodone Bitart/Acetaminophen ([place] 5/325mg) 1 tab PO Q4HP PRN PRN Reason: PAIN LEVEL 3-6 Albuterol/Ipratropium (Duoneb) 3 ml NEB Q4HRT PRN PRN Reason: Bronchospasm Dextrose (Dextrose 50%) 0 ml IV UD PRN PRN Reason: Hypoglycemia Diagnostic Test (Pha) (Accu-Chek) 1 each FS Q4 [facility] Last Admin: 09/20/18 12:25 Dose: 1 each Glucose (Insta-Glucose) 15 gm PO PRN PRN PRN Reason: Hypoglycemia Hydromorphone HCl (Dilaudid) 0.5 mg IV Q2HP PRN PRN Reason: PAIN LEVEL > 6 Last Admin: 09/19/18 08:05 Dose: 0.5 mg Octreotide Acetate 500 mcg/ (Sodium Chloride) 500 mls @ 50 mls/hr IV .Q10H [facility] Last Admin: 09/20/18 04:30 Dose: 50 mcg/hr, 50 mls/hr Sodium Chloride (Sodium Chloride 0.9%) 250 mls @ 20 mls/hr IV .[id number] [facility] Stop: 09/20/18 20:29 Last Admin: 09/20/18 12:23 Dose: 20 mls/hr Insulin Glargine (Lantus) 10 unit SQ HS [facility] Insulin Human Lispro (Humalog) 0 unit SQ Q4 [facility]; Protocol Last Admin: 09/20/18 12:31 Dose: 6 unit Ondansetron HCl (Zofran Odt) 4 mg SL Q4HP PRN PRN Reason: Nausea And Vomiting Last Admin: 09/20/18 09:53 Dose: 4 mg Pantoprazole Sodium (Protonix) 40 mg IV QAMAC [facility] Last Admin: 09/20/18 07:44 Dose: 40 mg Sodium Chloride (Saline Flush) 10 ml IV Q8 [facility] Last Admin: 09/20/18 07:45 Dose: 10 ml - Imaging and cardiology CT scan - abdomen Status: image reviewed by me Additional comments: IMPRESSION: 1. Mild cirrhotic changes with portal hypertension featuring enlargement of the portal vein and tributaries and perisplenic and gastric varices with a small amount of ascites. The spleen is markedly enlarged 2. Small right pleural effusion Medical - PN: A/P - Time Spent With Patient Total time spent is greater than 50% in coordination of care (as documented) at patient's floor/unit and/or counseling patient: Greater than 35 minutes - Narrative A/P Narrative: 32-year-old male presenting with GI bleed, also found to have new diagnosed diabetes and early DKA. Upper gastrointestinal hemorrhage. Secondary to bleeding gastric varices. Newly diagnosed cirrhosis/portal hypertension with esophageal and gastric varices. Hemoglobin has drifted down from 9.6-8.6, however did receive fluid boluses as well. Receiving 1 further unit of packed red cells today. Serologies pending. Tolerating octreotide. Plan: Advance diet to full liquid, likely to soft diet tomorrow Continue octreotide 2448 hours If remains stable, outpatient referral to Dr. Iggy Henry will follow-up in 2 weeks. If etiology unclear after serologies returned, may need liver biopsy as outpatient Diabetes mellitus. New diagnosis with early DKA. Early DKA is now resolved. Unclear if this is type I or type II, though given body habitus, suspect type 2 diabetes. Plan: Add Lantus regimen, continue sliding scale insulin, diabetes education. Iron deficiency anemia. MCV 74 at presentation, indicating underlying iron deficiency of unclear etiology. Will need further evaluation, including possible colonoscopy and convalescence. Plan: Follow up with GI as an outpatient. Asthma. Quiescent. Plan: As needed bronchodilators. Obesity. Recently has had weight loss, though BMI is 40.3. Prophylaxis: SCDs
[2018-09-20] MEDS ORDERED: DEXTROSE 50% 50 ML VIAL IV PRN (14:49)
[2018-09-20] MEDS ORDERED: DEXTROSE 31 GM ORAL.SUSP PO PRN (14:49)
[2018-09-20] MEDS ORDERED: HYDROmorphone 2 MG/ML VIAL IV PRN (14:49)
[2018-09-20] MEDS ORDERED: OCTREOTIDE ACETATE 500 MCG in 0.9 % SODIUM CHLORIDE 499.5 ML IV SCH ×2 (14:49→17:00)
[2018-09-20] MEDS ORDERED: IPRATROPIUM/ALBUTEROL 3 ML AMPUL.NEB NEB PRN (14:49)
[2018-09-20] MEDS ORDERED: oxyCODONE HCL 5 MG TABLET PO PRN (14:49)
[2018-09-20] MEDS ORDERED: ONDANSETRON ODT 4 MG TABLET SL PRN (14:49)
[2018-09-20 15:30] LABS: Hepatitis A Antibody Total NON-REACTIVE (NON-REACTIVE); Hepatitis B SAB Quant <5 mIU/mL (> OR = 10); Hepatitis B Surface Antigen NON-REACTIVE (NON-REACTIVE); Hepatitis C Virus Antibody NON-REACTIVE (NON-REACTIVE)
[2018-09-20] MEDS ORDERED: INSULIN GLARGINE, HUMAN 1 UNIT/0.01 ML SQ SCH ×2 (21:00)
[2018-09-20] MEDS ORDERED: ACETAMINOPHEN 325 MG TABLET PO ONE ×2 (21:47→21:56)
[2018-09-21] MEDS: INSULIN LISPRO 1 UNIT/0.01 ML UNIT SQ SCH ×6 (00:12→20:06)
[2018-09-21 00:47] LABS: ALT/SGPT 12 U/l (0-40); Albumin 3.1 gm/dL (3.2-5.2); Albumin/Globulin Ratio 1.1 (1.0-2.3); Alkaline Phosphatase 53 U/L (39-117); Bilirubin,Direct < 0.2 mg/dL (0.0-0.3); Blood Urea Nitrogen 10 mg/dl (6-20); Gamma Glutamyl Transpeptidase 14 U/L (8-61); Uric Acid 4.3 mg/dL (2.5-8.0)
[2018-09-21] MEDS: OCTREOTIDE ACETATE 500 MCG in 0.9 % SODIUM CHLORIDE 499.5 ML IV SCH ×3 (00:53→21:45)
[2018-09-21] MEDS: 0.9 % SODIUM CHLORIDE 10 ML SYRINGE IV SCH ×3 (05:29→20:06)
[2018-09-21 06:22] LABS: Basophils # (Auto) 0 K/mcL (0.0-0.3); Basophils % (Auto) 0.6 % (0.0-2.0); Eosinophils # (Auto) 0.1 K/mcL (0.0-0.7); Granulocytes % (Auto) 54.4 % (38.0-78.0); Lymphocytes # (Auto) 1.1 K/mcL (1.5-4.8); Lymphocytes % (Auto) 32.1 % (15.5-49.0); Mean Cell Volume 78.8 fL (80.0-100.0); Mean Corpuscular HGB Conc 32.7 g/dL (31.0-36.0); Mean Corpuscular Hemoglobin 25.8 pg (26.0-34.0); Monocytes # (Auto) 0.3 K/mcL (0.1-0.9); Monocytes % (Auto) 9.9 % (1.0-12.0); Platelet Count 87 K/mcL (140-440); RBC 3.28 M/mcL (4.50-5.90); Red Cell Distribution Width 16.2 % (11.5-14.5)
[2018-09-21] MEDS: PANTOPRAZOLE 40 MG VIAL IV SCH (08:00)
[2018-09-21] MEDS ORDERED: INSULIN GLARGINE, HUMAN 1 UNIT/0.01 ML SQ ONE (09:14)
[2018-09-21] MEDS ORDERED: 0.9 % SODIUM CHLORIDE 250 ML IV SCH (10:15)
--- NOTE | 2018-09-21 16:28 | Internal Med Progress Note ---
Medical - PN: Subj Patient information: Note initiated : 09/21/18 at 4:24 pm Service Date, if different from initiated Date: [] Patient: Marquise Garibay 32 y/o M admitted on 09/19/18 for Coughing up Blood and Dizziness. Chief Complaint: f/u GI bleed Interval history: 09/19 Admitted after presenting with upper gastrointestinal hemorrhage. EGD revealed gastric varices, one of which was banded due to active bleeding. Also with mild ketosis and elevated glucose, new onset diabetes. 09/20 Stable this morning. Hemoglobin is drifted from 9.6-8.6 last 24 hours. Continuing to pass some dark/bloody stools, though tapering off and is not brisk. No nausea or vomiting. No hematemesis. Tolerating clear liquid diet. Discussed with Dr. Henry. We'll continue with octreotide for 2448 hours further. Will need beta tyler at the time of discharge. Discussed with Dr. Parkinson, he will see the patient electively for possible TIPS or other procedure for treatment of gastric varices. Serologies and etiology of cirrhosis pending. 09/21 No complaints morning. One small dark BM yesterday. Nothing further. No nausea, no hematemesis. Tolerating full liquid diet. Insulin is being titrated up. Remains on octreotide drip. Received 1 unit of packed red cells yesterday, hemoglobin unchanged at 8.5 again today. Has been ambulating without lightheadedness or dyspnea. - Constitutional Vitals: Vital Signs Temp Pulse Resp BP Pulse Ox 99.2 F H 66 16 123/73 94 09/21/18 15:06 09/21/18 12:03 09/21/18 15:06 09/21/18 15:06 09/21/18 15:06 Period Temp Pulse Resp BP Sys/Puga Pulse Ox Last 24 Hr 98.4 F-99.4 F 66-66 16-20 115-129/67-73 93-98 Intake and Output 09/21/18 09/21/18 09/21/18 05:59 13:59 21:59 Intake Total 500 / 500 1305 / 1305 Output Total 550 / 550 275 / 275 Balance -50 / -50 1030 / 1030 Intake & Output: Intake & Output 09/21/18 09/21/18 09/21/18 05:59 13:59 21:59 Intake Total 500 / 500 1305 / 1305 Output Total 550 / 550 275 / 275 Balance -50 / -50 1030 / 1030 Intake: IV 500 / 500 500 / 500 Sandostatin 500 Mcg In Sodium 500 / 500 Chloride 0.9% 499.5 ml @ 50 MCG /HR 50 mls/hr IV .Q10H [facility] Rx#: [id number] Oral 0 / 0 480 / 480 Blood Product 325 / 325 Output: Void Amount 550 / 550 275 / 275 Other: Meal Lunch Percent of Meal Consumed 100% Feeding Ability Assist with Tray Set Up Urine Color Bright Yellow Light Lucie Stool Size Small Stool Color Black Stool Consistency Soft Formed # Bowel Movements 1 Exam: General: In bed, no distress Chest: Clear, no rales Cardiovascular: Regular, trace edema Abdomen soft, nontender Neuro alert, oriented, nonfocal. Medical - PN: Obj Da - Labs CBC & Chem 7: 09/21/18 04:12 09/20/18 22:35 Labs: Abnormal Lab Results 09/21/18 09/20/18 09/20/18 04:12 22:35 04:07 WBC 3.5 L RBC 3.28 L Hgb 8.5 L Hct 25.9 L POC Hct MCV 78.8 L MCH 25.8 L RDW 16.2 H Plt Count 87 L MPV Gran # Lymph # (Auto) 1.1 L PT INR Carbon Dioxide POC Total CO2 POC BUN BUN Creatinine 0.6 L 0.5 L POC Creatinine Glucose 237 H 229 H POC Glucose Hemoglobin A1c Osmolality Calcium 8.2 L 8.2 L POC WB Ioniz Calcium Phosphorus Iron Ferritin Total Protein Albumin 3.1 L 3.1 L Beta-Hydroxybutyrate Ur Specific [place] Urine Glucose (UA) Urine Ketones Hep Bs Antibody, Quant 09/20/18 09/20/18 09/20/18 04:07 04:07 00:10 WBC RBC 3.33 L Hgb 8.4 L 8.6 L Hct 25.9 L 26.2 L POC Hct MCV 78.0 L MCH 25.3 L RDW 16.6 H Plt Count 98 L MPV Gran # Lymph # (Auto) 1.3 L PT INR Carbon Dioxide POC Total CO2 POC BUN BUN Creatinine POC Creatinine Glucose POC Glucose Hemoglobin A1c Osmolality Calcium POC WB Ioniz Calcium Phosphorus Iron 32 L Ferritin 16.0 L Total Protein Albumin Beta-Hydroxybutyrate Ur Specific [place] Urine Glucose (UA) Urine Ketones Hep Bs Antibody, Quant 09/19/18 09/19/18 09/19/18 20:01 16:21 11:50 WBC RBC Hgb 8.8 L 9.0 L 9.3 L Hct 26.9 L 27.4 L 28.2 L POC Hct MCV MCH RDW Plt Count MPV Gran # Lymph # (Auto) PT INR Carbon Dioxide POC Total CO2 POC BUN BUN Creatinine POC Creatinine Glucose POC Glucose Hemoglobin A1c Osmolality Calcium POC WB Ioniz Calcium Phosphorus Iron Ferritin Total Protein Albumin Beta-Hydroxybutyrate Ur Specific [place] Urine Glucose (UA) Urine Ketones Hep Bs Antibody, Quant 09/19/18 09/19/18 09/19/18 07:00 07:00 03:00 WBC RBC Hgb Hct POC Hct MCV MCH RDW Plt Count MPV Gran # Lymph # (Auto) PT INR Carbon Dioxide 21 L POC Total CO2 POC BUN BUN 23 H Creatinine 0.5 L POC Creatinine Glucose 294 H POC Glucose Hemoglobin A1c Osmolality Calcium 8.0 L POC WB Ioniz Calcium Phosphorus Iron Ferritin Total Protein 5.7 L Albumin 3.0 L Beta-Hydroxybutyrate Ur Specific [place] 1.041 H Urine Glucose (UA) >=500 A Urine Ketones 20 A Hep Bs Antibody, Quant <5 A 09/19/18 09/19/18 09/19/18 03:00 03:00 03:00 WBC RBC Hgb Hct POC Hct MCV MCH RDW Plt Count MPV Gran # Lymph # (Auto) PT 14.8 H INR 1.2 H Carbon Dioxide POC Total CO2 POC BUN BUN Creatinine POC Creatinine Glucose POC Glucose Hemoglobin A1c 10.7 H Osmolality Calcium POC WB Ioniz Calcium Phosphorus 2.5 L Iron Ferritin Total Protein Albumin Beta-Hydroxybutyrate Ur Specific [place] Urine Glucose (UA) Urine Ketones Hep Bs Antibody, Quant 09/19/18 09/19/18 09/19/18 03:00 03:00 02:30 WBC 12.2 H RBC 3.83 L Hgb 9.4 L Hct 29.2 L POC Hct 29.0 L MCV 76.2 L MCH 24.6 L RDW 15.3 H Plt Count MPV 11.3 H Gran # 8.3 H Lymph # (Auto) PT INR Carbon Dioxide POC Total CO2 21 L POC BUN 22 H BUN Creatinine POC Creatinine 0.4 L Glucose POC Glucose 286 H Hemoglobin A1c Osmolality Calcium POC WB Ioniz Calcium 1.13 L Phosphorus Iron Ferritin Total Protein Albumin Beta-Hydroxybutyrate 0.37 H Ur Specific [place] Urine Glucose (UA) Urine Ketones Hep Bs Antibody, Quant 09/18/18 09/18/18 09/18/18 23:35 22:30 22:15 WBC RBC Hgb Hct POC Hct 27.0 L 27.0 L MCV MCH RDW Plt Count MPV Gran # Lymph # (Auto) PT INR Carbon Dioxide POC Total CO2 21 L POC BUN 25 H BUN Creatinine POC Creatinine 0.4 L 0.3 L Glucose POC Glucose 297 H 330 H Hemoglobin A1c Osmolality 306 H Calcium POC WB Ioniz Calcium 1.05 L 1.09 L Phosphorus Iron Ferritin Total Protein Albumin Beta-Hydroxybutyrate Ur Specific [place] Urine Glucose (UA) Urine Ketones Hep Bs Antibody, Quant 09/18/18 09/18/18 09/18/18 22:15 22:15 22:15 WBC RBC 4.18 L Hgb 10.4 L Hct 31.1 L POC Hct MCV 74.3 L MCH 24.8 L RDW 14.6 H Plt Count MPV Gran # Lymph # (Auto) PT INR Carbon Dioxide 21 L POC Total CO2 POC BUN BUN Creatinine 0.6 L POC Creatinine Glucose 339 H POC Glucose Hemoglobin A1c Osmolality Calcium POC WB Ioniz Calcium Phosphorus Iron Ferritin Total Protein Albumin Beta-Hydroxybutyrate 0.35 H Ur Specific [place] Urine Glucose (UA) Urine Ketones Hep Bs Antibody, Quant Meds: Medications Albuterol/Ipratropium (Duoneb) 3 ml NEB Q4HRT PRN PRN Reason: Bronchospasm Dextrose (Dextrose 50%) 0 ml IV UD PRN PRN Reason: Hypoglycemia Diagnostic Test (Pha) (Accu-Chek) 1 each FS ACHS [facility] Last Admin: 09/21/18 12:22 Dose: 1 each Glucose (Insta-Glucose) 15 gm PO PRN PRN PRN Reason: Hypoglycemia Hydromorphone HCl (Dilaudid) 0.5 mg IV Q2HP PRN PRN Reason: PAIN LEVEL > 6 Last Admin: 09/21/18 12:14 Dose: 0.5 mg Octreotide Acetate 500 mcg/ (Sodium Chloride) 500 mls @ 50 mls/hr IV .Q10H [facility] Last Admin: 09/21/18 11:23 Dose: 50 mcg/hr, 50 mls/hr Sodium Chloride (Sodium Chloride 0.9%) 250 mls @ 20 mls/hr IV .[id number] [facility] Stop: 09/21/18 22:44 Last Admin: 09/21/18 11:23 Dose: 20 mls/hr Insulin Glargine (Lantus) 20 unit SQ HS [facility] Insulin Human Lispro (Humalog) 0 unit SQ ACHS [facility]; Protocol Last Admin: 09/21/18 12:24 Dose: 4 units Ondansetron HCl (Zofran Odt) 4 mg SL Q4HP PRN PRN Reason: Nausea And Vomiting Oxycodone HCl (Roxicodone) 5 mg PO Q4-6HP PRN PRN Reason: PAIN LEVEL 3-6 Pantoprazole Sodium (Protonix) 40 mg IV QAMAC [facility] Last Admin: 09/21/18 08:00 Dose: 40 mg Sodium Chloride (Saline Flush) 10 ml IV Q8 [facility] Last Admin: 09/21/18 12:14 Dose: 10 ml Medical - PN: A/P - Time Spent With Patient Total time spent is greater than 50% in coordination of care (as documented) at patient's floor/unit and/or counseling patient: Greater than 35 minutes - Narrative A/P Narrative: 32-year-old male presenting with GI bleed, also found to have new diagnosed diabetes and early DKA. Upper gastrointestinal hemorrhage. Secondary to bleeding gastric varices. Newly diagnosed cirrhosis/portal hypertension with esophageal and gastric varices. Hemoglobin has drifted down to 8.6 yesterday morning, received 1 unit , now 8.5. Suspect part of that is due to equilibration. One small bowel movement that was dark, consistent with old blood. No sign of active bleeding. Serologies pending as to source of cirrhosis. Tolerating octreotide. Plan: Advance diet to soft diet, carbohydrate controlled. Continue octreotide today. Transfuse 1 further unit of packed red blood cells, follow labs in the morning. If remains stable, outpatient referral to Dr. Parkinson for possible TIPS or interventional treatment for gastric varices. Dr. Henry will follow-up in 2 weeks. If etiology unclear after serologies returned, may need liver biopsy as outpatient Diabetes mellitus. New diagnosis with early DKA. Early DKA is now resolved. Unclear if this is type I or type II, though given body habitus, suspect type 2 diabetes. Plan: Titrate up the Lantus, change sliding-scale to before meals and at bedtime , diabetes education. Iron deficiency anemia. MCV 74 at presentation, indicating underlying iron deficiency of unclear etiology. Will need further evaluation, including possible colonoscopy and convalescence. Plan: Follow up with GI as an outpatient. Asthma. Quiescent. Plan: As needed bronchodilators. Obesity. Recently has had weight loss, though BMI is 40.3. Prophylaxis: SCDs
[2018-09-21] MEDS ORDERED: INSULIN GLARGINE, HUMAN 1 UNIT/0.01 ML SQ SCH (21:00)
[2018-09-22] MEDS: 0.9 % SODIUM CHLORIDE 10 ML SYRINGE IV SCH ×3 (05:49→15:33)
[2018-09-22] MEDS: INSULIN LISPRO 1 UNIT/0.01 ML UNIT SQ SCH ×2 (07:54→12:37)
[2018-09-22 07:56] LABS: Basophils # (Auto) 0 K/mcL (0.0-0.3); Basophils % (Auto) 0.3 % (0.0-2.0); Eosinophils # (Auto) 0.1 K/mcL (0.0-0.7); Eosinophils % (Auto) 2.5 % (0.0-7.0); Granulocytes % (Auto) 62.7 % (38.0-78.0); Lymphocytes # (Auto) 0.9 K/mcL (1.5-4.8); Lymphocytes % (Auto) 27.3 % (15.5-49.0); Mean Cell Volume 80.7 fL (80.0-100.0); Mean Corpuscular HGB Conc 32.7 g/dL (31.0-36.0); Mean Corpuscular Hemoglobin 26.4 pg (26.0-34.0); Monocytes # (Auto) 0.2 K/mcL (0.1-0.9); Monocytes % (Auto) 7.2 % (1.0-12.0); Platelet Count 78 K/mcL (140-440); RBC 3.35 M/mcL (4.50-5.90); Red Cell Distribution Width 17.5 % (11.5-14.5)
[2018-09-22] MEDS: PANTOPRAZOLE 40 MG VIAL IV SCH (07:56)
[2018-09-22 08:25] LABS: Blood Urea Nitrogen 8 mg/dl (6-20)
[2018-09-22] MEDS: OCTREOTIDE ACETATE 500 MCG in 0.9 % SODIUM CHLORIDE 499.5 ML IV SCH (08:28)
[2018-09-22 11:48] LABS: Ceruloplasmin 24 mg/dL (18-36)
--- NOTE | 2018-09-22 13:27 | Discharge Summary ---
Medical - DS: Prov Patient information: Note initiated : 09/22/18 at 1:18 pm Service Date, if different from initiated Date: [] Patient: Marquise Garibay 32 y/o M admitted on 09/19/18 for Coughing up Blood and Dizziness. Date of admission: 09/19/18 04:00 Discharge date: 09/22/18 Primary care physician: PCP No Admitting clinician: Damon Barclay Consults: 09/19/18 Consult to Physician [CONS] Stat Comment: Consulting Provider: Damon Barclay Reason For Exam: Physician to Consult Consult to Physician [CONS] Stat Comment: Consulting Provider: Gilberto Kahn Reason For Exam: Physician to Consult Discharging clinician: Ceci Humphreys Medical - DS: Meds - Discharge Medications Prescriptions: Accu-Chek 1 each FS ACHS #1 pkg Insulin Glargine,Hum.rec.anlog [Lantus Solostar] 20 unit SQ HS #1 insuln.pen Insulin Lispro [Humalog] 2 - 12 unit SQ ACHS PRN #1 unit PRN Reason: Hypoglycemia Lancing Device/Lancets [Microlet 2 Lancing Device] 1 each MC ACHS #1 kit Omeprazole [Prilosec] 20 mg PO ACB #30 cap Pen Needle, Diabetic [Sure-Fine Pen Bronaugh] 1 each MC ACHS #100 dis.needle Active and Home Medications: Home Medications Loratadine [Claritin] 10 mg PO ONCE 09/19/18 [History Confirmed 09/19/18 Last Taken Unknown] Naproxen 500 mg PO Q6 PRN 09/19/18 [History Confirmed 09/19/18 Last Taken Unknown] Medical - DS: Hosp Hospital course: 09/19 Mr. Garibay is a 32 year old M resents to the ED with nausea vomiting. He states that this all started tonight started to feel more tired today and have an episode of nausea vomiting with bright red blood in it, he became very lightheaded today short of breath with exertion. Is been very tired today. Because of the bloody when the ER. In the ED he was found to have early DKA and a GI bleed, appeared to be upper. He also had a dark melanotic bowel movement in the ED. Patient has had polyuria polydipsia but no previous diagnosis of diabetes. He is lost probably close to 200 pounds over the last few years, from dietary changes. He also has chronic knee and back pain and has been taking naproxen 1- 2 tablets every day for the past several months prior to that he was using ibuprofen. EGD revealed gastric varices, one of which was banded due to active bleeding. 09/20 Stable this morning. Hemoglobin is drifted from 9.6-8.6 last 24 hours. Continuing to pass some dark/bloody stools, though tapering off and is not brisk. No nausea or vomiting. No hematemesis. Tolerating clear liquid diet. Discussed with Dr. Henry. We'll continue with octreotide for 2448 hours further. Will need beta tyler at the time of discharge. Discussed with Dr. Parkinson, he will see the patient electively for possible TIPS or other procedure for treatment of gastric varices. Serologies and etiology of cirrhosis pending. 09/21 No complaints morning. One small dark BM yesterday. Nothing further. No nausea, no hematemesis. Tolerating full liquid diet. Insulin is being titrated up. Remains on octreotide drip. Received 1 unit of packed red cells yesterday, hemoglobin unchanged at 8.5 again today. Has been ambulating without lightheadedness or dyspnea. 09/22 Remained stable, ambulating without symptoms. Hemoglobin is stable. No further bowel movements, passing flatus however. Tolerating soft diet. Received diabetes education. Comfortable giving himself on injections. 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 New diagnosis with evaluation pending, will follow up with Dr. Kahn, outpatient evaluation by Dr. Parkinson for possible intervention (e.g. TIPS) to decompress gastric varices. -Diabetes mellitus. New diagnosis with early DKA (resolved). Being treated with insulin therapy. -Iron deficiency anemia. MCV 74 at presentation, indicating underlying iron deficiency of unclear etiology. Will need further evaluation, including possible colonoscopy and convalescence. -Asthma, quiescent. -Obesity. Recently has had weight loss, BMI 40.3. - Time Spent with Patient Total time spent providing and/or coordinating discharge services: Greater than 30 minutes Medical - DS: Exam - Constitutional Vitals: Vital Signs Temp Resp BP Pulse Ox 09/22/18 12:06 98.2 F 16 122/72 98 09/22/18 08:00 16 118/68 96 09/22/18 06:54 98.7 F 16 118/68 96 09/22/18 04:37 98.1 F 17 113/59 99 09/22/18 00:11 98.5 F 17 116/63 98 09/21/18 19:44 98.6 F 18 123/73 97 09/21/18 15:06 99.2 F H 16 123/73 94 Intake and Output 09/21/18 09/22/18 09/22/18 21:59 05:59 13:59 Intake Total 740 / 740 150 / 150 1200 / 1200 Output Total 250 / 250 1140 / 1140 Balance 490 / 490 -990 / -990 1200 / 1200 Intake: IV 500 / 500 640 / 640 Sandostatin 500 Mcg In Sodium 500 / 500 640 / 640 Chloride 0.9% 499.5 ml @ 50 MCG /HR 50 mls/hr IV .Q10H [facility] Rx#: [id number] Oral 240 / 240 150 / 150 560 / 560 Output: Urine Catheter Amount 250 / 250 Void Amount 1140 / 1140 Other: Meal Dinner Lunch Percent of Meal Consumed 100% 100% Urine Appearance Clear Urine Color Dark Lucie Urine Odor Normal # Voids 1 Weight 372 lb 4.8 oz Additional comments: General: No acute distress Chest: Clear, unlabored Cardio vascular: Regular, no murmur gallop or rub, no edema Abdomen: Obese, soft, nontender Neuro: Alert, oriented, nonfocal Medical - DS: Data Procedures and tests throughout hospitalization: DATE OF OPERATION: 09/19/2018 PROCEDURE: Esophagogastroduodenoscopy with varicele band ligations. [employer]ER[employer] OPERATOR: Gilberto Kahn MD ANESTHETIC USED: Propofol 400 mg IV, Versed 2 mg IV. PREOPERATIVE DIAGNOSIS: This 32-year-old white male presented to the emergency room late last night with new onset of grossly melenic stool and lightheadedness. He also had some hematemesis of dark red blood by his report. He has no abdominal pain. He has been having problems with musculoskeletal pain for several months now involving his knee and also an ankle problem. He previously had been on ibuprofen for many months and in the last 2 months he estimates he has been taking naproxen twice a day. He was seen at the [facility], but cannot recall which provider he saw. He does not have any routine medical care. On presentation to the emergency room last night he was found to be markedly orthostatic. No abdominal pain. Hemoglobin was initially 10.4 and then on repeat was down to 9.4. He is also found to have diabetes. He has a family history, but was unaware of any diabetes until this time. He has some mild DKA. His hemoglobin A1C on admission is 10.7. He denies smoking. He drinks one shot of alcohol, perhaps once a month or maybe once every 2 months. 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 Banding performed as described. RECOMMENDATIONS AND FOLLOWUP: 1. Octreotide bolus 50 mcg and drip 50 mcg per hour. 2. I have advised at least 1 unit of packed red blood cell infusion now given the apparent large amount of blood loss along with the orthostatic status. 3. I have discussed with the hospitalist, Dr. Barclay. I am going to recommend serologic workup for cirrhosis and will recommend and discuss the case with Dr. Gilberto Parkinson of Interventional Radiology at [facility]. I suspect he has gastric varices which bled and with as much blood as he had quickly accumulated in his stomach I was not able to see to examine the gastric varices as well as I would like. The patient may benefit from TIPS, but I will discuss with Dr. Parkinson. Labs on day of discharge: Labs from last 24 hours 09/22/18 09/22/18 09/19/18 04:20 04:20 07:00 WBC 3.4 L RBC 3.35 L Hgb 8.9 L Hct 27.0 L MCV 80.7 MCH 26.4 MCHC 32.7 RDW 17.5 H Plt Count 78 L MPV 10.4 Gran % 62.7 Lymph % (Auto) 27.3 Grimes % (Auto) 7.2 Eos % (Auto) 2.5 Baso % (Auto) 0.3 Gran # 2.1 Lymph # (Auto) 0.9 L Grimes # (Auto) 0.2 Eos # (Auto) 0.1 Baso # (Auto) 0 Sodium 138 Potassium 3.9 Chloride 102 Carbon Dioxide 25 Anion Gap 11.0 BUN 8 Creatinine 0.6 L GFR Calculation 132 Glucose 159 H Calcium 8.0 L Ceruloplasmin 24 - Imaging and Cardiology CT scan - abdomen Additional comments: Date of Service: 09/19/18 Procedure(s): CT angio abdomen pelvis FINDINGS: Lung bases show small right pleural effusion. There are no infiltrates. The visualized heart is normal in size and configuration. Abdominal images show mild cirrhotic changes featuring inhomogeneous hepatic attenuation, mild cortical irregularity and slight decrease in hepatic size. There is no CT evidence for hepatoma or other focal hepatic lesion. Small amount of high density material layering dependently within the gallbladder may indicate sludge or tiny stones. Gallbladder and intrahepatic/extrahepatic bile ducts are, otherwise, normal. CBD is 5 mm. The portal vein is mildly enlarged with a diameter of 19 mm. There is also congestion in all the portal vein tributaries: Splenic vein, SMV and IMV. Mild splenic and gastric varices noted. There are no esophageal varices however. A small amount of ascites is seen in the perihepatic, perisplenic and intrapelvic regions. The spleen is markedly enlarged - 20 cm in vertical dimension The pancreas, both adrenal glands, kidneys, aorta including aortic branches, are normal in size configuration and attenuation without focal lesion. The stomach, small bowel/large bowel and appendix region are normal. Images through the pelvis show prostate, vesicles and urinary bladder to be normal. Bone windows show no focal osseous abnormality. At L5-S1, moderate broad disc complex and facet arthropathy result in severe right and moderate left IV foraminal narrowing impinging exiting L5 nerve roots. IMPRESSION: 1. Mild cirrhotic changes with portal hypertension featuring enlargement of the portal vein and tributaries and perisplenic and gastric varices with a small amount of ascites. The spleen is markedly enlarged 2. Small right pleural effusion Medical - DS: A/P - Patient/Caregiver Discharge Instructions Activity: increase activity as tolerated Diet: Consistent Carbohydrate (soft diet) Additional Instructions: Dr. Kahn's office should call Sunday or Sunday with follow-up appointment. If you have not heard from them by Sunday, please call his office. When you do speak with his office, also ask about referral to see Dr. Gilberto Parkinson at [facility] (if Dr. Parkinson's office had not yet call ). ED soft diet, including well cooked vegetables; no chips, crusty bread, other sharp foods. Prescriptions: Accu-Chek 1 each ACHS #1 pkg Insulin Glargine,Hum.rec.anlog [Lantus Solostar] 20 unit SQ HS #1 insuln.pen Insulin Lispro [Humalog] 2 - 12 unit SQ ACHS PRN #1 unit PRN Reason: Hypoglycemia Lancing Device/Lancets [Microlet 2 Lancing Device] 1 each ACHS #1 kit Nadolol [Corgard] 20 mg PO DAILY #30 tab Omeprazole [Prilosec] 20 mg PO ACB #30 cap Pen Needle, Diabetic [Sure-Fine Pen Bronaugh] 1 each ACHS #100 dis.needle - Follow up Plan Follow up with: Gilberto Kahn MD [Physician] - (2 weeks, his office will call) Gilberto Parkinson MD [Physician] - (Call either Dr. Parkinson or Dr. Kahn's office if you haven't heard from Dr. Parkinson's office by mid-week.) [facility] [Provider Group] (1-2 weeks) Disposition: Home, Self-Care Prognosis: Fair Rehab Potential: Fair Overall status at discharge: patient is back to baseline
[2018-09-23 06:57] LABS: Actin (Smooth Muscle) AB IGG 29 U
[2018-09-30 06:48] LABS: Mitochondrial Antibody Screen NEGATIVE (NEGATIVE)
== END 2018-09-22 15:25 | disposition home or self-care (01) | DRG 299 ==
LOC: ED 22:04 → ICU 09-19 04:00
PROVIDERS: ADMIT Internal Medicine; ATTEND Internal Medicine
PROC: EGDBAND (ICD-10-PCS; 2018-09-19 05:46)
CPT/HCPCS: 80047; 82010; 85014; 87340; 99223; J1170; J1815; J1817; J2250; J2353; J2354; J2405; J3480; J7030; J7040; J7050; J7120; Q9967